=== PATIENT | female | born 1960 | race Caucasian/White ===

== ENCOUNTER 2017-12-03 23:22 | Emergency (ER) | payer SELFPAY ==
[~2017-12-03 23:22] MED LIST: ALPR0.5T PO; DULO20CA PO; FLUT16SP2 NS; STATIN PO
--- NOTE | 2017-12-04 00:39 | NUR ---
CALLED FOR PT NO ANSWER
--- NOTE | 2017-12-04 00:57 | NUR ---
CALLED FOR PT NO ANSWER LWBT
== END 2017-12-04 01:01 | disposition left against medical advice (07) ==
LOC: ER 23:28
DX: Z53.21 Procedure and treatment not carried out due to patient leaving prior to being seen by health care provider (principal)

== ENCOUNTER 2017-12-10 02:58 | Emergency (ER) | payer SELFPAY ==
[~2017-12-10] VITALS: Ht 175.3 cm; Wt 102.1 kg
--- NOTE | 2017-12-10 03:44 | NUR ---
PT IN BED. RESPIRATORY ASSESSMENT COMPLETED. LUNG SOUNDS ARE CLEAR BILATERALLY. EKG COMPLETED. MD SOUTH COMPLETED. CURRENTLY WAITING FOR XRAY FOR CHEST SCAN. NO SIGNS OF DISTRESS WITNESSED AT THIS TIME.
[2017-12-10] MEDS ORDERED: DICYCLOMINE HCL 10 MG/5 ML UDC LIQ PO ONE (04:00)
[2017-12-10] MEDS ORDERED: MAG HYDROX/AL HYDROX/SIMETH 30 ML LIQUID UDC PO ONE (04:00)
[2017-12-10] MEDS ORDERED: DICYCLOMINE HCL 10 MG/5 ML UDC LIQ ONE (04:04)
[2017-12-10] MEDS ORDERED: MAG HYDROX/AL HYDROX/SIMETH 30 ML LIQUID UDC ONE (04:04)
--- NOTE | 2017-12-10 04:14 | NUR ---
Patient discharged to home in stable conditon. Written and verbal after care instructions given. Patient verbalizes understanding of instructions. Patient expressed having reduced anxiety pertaining to being ill prior to discharge. Patient able to ambulate unassisted with steady gait. Patient left with all personal belongings.
[2017-12-10 04:17] VITALS: BP 147/92
== END 2017-12-10 04:15 | disposition home or self-care (01) ==
LOC: ER 03:00
DX: F41.9 Anxiety disorder, unspecified (principal); E11.9 Type 2 diabetes mellitus without complications; I10 Essential (primary) hypertension; E78.5 Hyperlipidemia, unspecified; F17.210 Nicotine dependence, cigarettes, uncomplicated; Z90.710 Acquired absence of both cervix and uterus; Z79.51 Long term (current) use of inhaled steroids; Z79.899 Other long term (current) drug therapy
CPT/HCPCS: 71045; 93005; A4663